=== PATIENT | female | born 1960 | race Caucasian/White ===

== ENCOUNTER 2022-04-27 10:30 | Day surgery (SDC) | payer BC, SELFPAY ==
--- NOTE | 2022-04-26 12:12 | P.CONAN_ITS ---
Documented by User: Trini Maldonado NP 04/26/22 12:14 HPI - Anesthesia Eval Consult details Narrative: 62yo F for Colonoscopy [facility] Past Medical History Medical History (Updated 04/26/22 @ 12:13 by Trini Maldonado NP) HLD (hyperlipidemia) Osteoarthritis Scoliosis Surgical History Surgical History (Updated 04/27/22 @ 10:56 by Courtney Begum) H/O colonoscopy H/O cystoscopy H/O endoscopy History of mandibular surgery Previous section Social History Social History Patient Tobacco Use Status: Never used Tobacco Use of substances other than those prescribed or required for medical reasons: No Are you DNR?: No Advance Directives: No Advance Directives Information Provided: Yes Meds Allergies Allergy/AdvReac Type Severity Reaction Status Date / Time meperidine [From Demerol] Allergy Severe Rash Verified 04/27/22 11:27 mushroom Allergy Mild Diarrhea Verified 04/27/22 11:27 Home Medications Medication Instructions Recorded Confirmed Last Taken Type atorvastatin 10 mg tablet 1 tab PO DAILY 04/26/22 04/27/22 Unknown History Exam Exam Date and Time: April 26, 2022 1212 Assessment and Plan Assessment Anesthesia Assessment: Chart Reviewed Documented by User: Brooke Hardy MD 04/27/22 12:38 [facility] Past Medical History Medical History (Updated 04/26/22 @ 12:13 by Trini Maldonado NP) HLD (hyperlipidemia) Osteoarthritis Scoliosis Family History Family history of problems with anesthesia: No Surgical History Surgical History (Updated 04/27/22 @ 10:56 by Courtney Begum) H/O colonoscopy H/O cystoscopy H/O endoscopy History of mandibular surgery Previous section History of Problems with Anesthesia: No Social History Social History Patient Tobacco Use Status: Never used Tobacco Use of substances other than those prescribed or required for medical reasons: No Are you DNR?: No Advance Directives: No Advance Directives Information Provided: Yes Meds Allergies Allergy/AdvReac Type Severity Reaction Status Date / Time meperidine [From Demerol] Allergy Severe Rash Verified 04/27/22 11:27 mushroom Allergy Mild Diarrhea Verified 04/27/22 11:27 Home Medications Medication Instructions Recorded Confirmed Last Taken Type atorvastatin 10 mg tablet 1 tab PO DAILY 04/26/22 04/27/22 Unknown History Exam Airway Mallampati Class: II TM Dist: >3cm Neck ROM: Full Heart: rrr Lungs: cta Assessment and Plan Final Anesthetic Review Family History of Problems with Anesthesia: No History of Problems with Anesthesia: No NPO: Yes ASA Class: II Final Preanesthetic Review: No Changes in Pt Med Stat Patient Risk: Low Procedure Risk: Low Anesthetic Plan Anesthetic Plan: MAC: Disposition: Standard PACU
[2022-04-27 11:00] VITALS: BP 141/77; PULSE 75; RESP 16; TEMP 37.1; O2SAT 98; BMI 24.7
[2022-04-27] MEDS: Lactated Ringers 1,000 ML 100 ML IVCONT (11:26)
--- NOTE | 2022-04-27 12:26 | MHC.SHP ---
Pre-Procedural Eval Section A Date of Service: 04/27/22 The patient is an INPATIENT: No Changes since office visit: No Cold of Flu in the past 2 weeks, No New Medical Problems, No Changes in Medication and No Patient answered all questions The History & Physical has been completed within 30 days and I have reviewed it.: Yes Section B Chief Complaint: screening,family hx of neoplasm Allergies: Allergies Allergy/AdvReac Type Severity Reaction Status Date / Time meperidine [From Demerol] Allergy Severe Rash Verified 04/27/22 11:27 mushroom Allergy Mild Diarrhea Verified 04/27/22 11:27 Plan I have reviewed the history and physical and performed a pertinent physical examination on my patient. No changes have occurred unless specified.
--- NOTE | 2022-04-27 13:08 | PM.OP ---
Brief Operative Note Date of Service: 04/27/22 Pre-op diagnosis: screening Post-op diagnosis: same Procedure: colonoscopy Surgeon: Isacc Bryan Anesthesia: MAC Was an Bin Tripper Operator used for this Procedure?: No Estimated blood loss (mL): 2 Pathology: other Condition: stable Disposition: PACU
[2022-04-27 13:16] VITALS: BP 112/68; PULSE 80; RESP 18; TEMP 36.7; O2SAT 99
[2022-04-27 13:34] VITALS: BP 149/76; PULSE 63; RESP 18; TEMP 36.7; O2SAT 100
--- NOTE | 2022-04-27 23:45 | OP_ITS ---
SURGEON: Isacc Bryan MD INDICATIONS: Colon cancer screening. PREOPERATIVE DIAGNOSIS: POSTOPERATIVE DIAGNOSIS: PROCEDURE PERFORMED: ESTIMATED BLOOD LOSS: COMPLICATIONS: ANESTHESIA: Monitored anesthesia care. ASSISTANTS: SPECIMENS: PROCEDURE: Colonoscopy to the terminal ileum with biopsy. DESCRIPTION OF PROCEDURE: The procedure was performed on 04/27/2022. History and physical performed and the risks and benefits of the procedure were explained to the patient. Informed consent was obtained. The patient was placed in the left lateral decubitus position. A digital rectal exam was performed and was found to be normal. The Olympus pediatric videocolonoscope was introduced into the rectum and advanced to the cecum. The cecum was identified by transillumination, palpation, and identification of ileocecal valve. Examination was performed. The scope was removed. She tolerated the procedure well and was returned to recovery in stable condition. FINDINGS: The terminal ileum was examined and appeared normal. The visualized colonic mucosa was normal. There was some stool coating mucosa in the right colon. This was washed and suctioned, but did limit the sensitivity of the examination for detection of small polyps. One polyp was identified in the rectum measuring less than 5 mm, which was removed with biopsy forceps. No other polyps were seen. There was mild sigmoid diverticulosis. Retroflexed examination showed small internal hemorrhoids. IMPRESSION: Colon polyp. RECOMMENDATION: Follow up with the biopsy results. MD CELINA Melendez/[place] / [id number] MTDD
== END 2022-04-27 13:57 | disposition home or self-care (01) ==
PROVIDERS: PCP Family Medicine; Visit Provider Internal Medicine Gastroenterology
PROC: 0DJD8ZZ Inspection of Lower Intestinal Tract, Via Natural or Artificial Opening Endoscopic (ICD-10-PCS; CPT 45378; principal; 2022-04-27 11:40)
DX: Z12.11 Encounter for screening for malignant neoplasm of colon (principal); K62.1 Rectal polyp; K57.30 Diverticulosis of large intestine without perforation or abscess without bleeding; K64.8 Other hemorrhoids; Z80.0 Family history of malignant neoplasm of digestive organs; E78.5 Hyperlipidemia, unspecified; Z79.899 Other long term (current) drug therapy; Z88.5 Allergy status to narcotic agent
CPT/HCPCS: 45380; 88305